=== PATIENT | male | born 1960 | race African-American/Black ===

== ENCOUNTER 2016-10-25 03:00 | Emergency (ER) | payer MEDICARE, MEDICAID ==
[~2016-10-25] VITALS: Ht 175.3 cm; Wt 86.4 kg
[~2016-10-25 03:00] MED LIST: ASPI81 PO; HYDR-2768 PO; HYDR10TA16 PO; PRIN20TA2 PO
[2016-10-25 03:02] VITALS: BP 140/75; PULSE 67; RESP 16; TEMP 98.1; O2SAT 97
[2016-10-25] MEDS ORDERED: SODIUM CHLORIDE 0.9% FLUSH 10 ML FLUSH IVF PRN (03:15)
[2016-10-25] MEDS ORDERED: ASPI81CH CHEW (03:21)
[2016-10-25] MEDS ORDERED: CLON0.2T PO (03:21)
[2016-10-25] MEDS ORDERED: HYDR-3516 PO (03:22)
[2016-10-25] MEDS ORDERED: LISI-515 PO (03:22)
[2016-10-25] MEDS ORDERED: STATIN (03:23)
--- NOTE | 2016-10-25 03:34 | RADRPT ---
EXAM DATE/TIME: 10/25/2016 03:27 [place] COMPARISON: No previous studies available for comparison. INDICATIONS : Seizure, altered mental status. RADIATION DOSE: 49.62 CTDIvol (mGy) MEDICAL HISTORY : Cardiovascular disease. Hypertension. SURGICAL HISTORY : None. ENCOUNTER: Initial ACUITY: 1 day PAIN SCALE: 0/10 LOCATION: cranial TECHNIQUE: Multiple contiguous axial images were obtained of the head. Using automated exposure control and adj ustment of the mA and/or kV according to patient size, radiation dose was kept as low as reasonably a chievable to obtain optimal diagnostic quality images. DICOM format image data is available electro nically for review and comparison. FINDINGS: CEREBRUM: The ventricles are normal for age. No evidence of midline shift, mass lesion, hemorrhage or acute in farction. No extra-axial fluid collections are seen. POSTERIOR FOSSA: The cerebellum and brainstem are intact. The 4th ventricle is midline. The cerebellopontine angle i s unremarkable. EXTRACRANIAL: The visualized portion of the orbits is intact. SKULL: The calvaria is intact. No evidence of skull fracture. CONCLUSION: Negative noncontrast head CT. Zach Vegas MD on October 25, 2016 at 3:33 Board Certified Radiologist. This report was verified electronically.
[2016-10-25 03:39] LABS: AUTOMATED NEUTROPHIL # 3.5 TH/MM3 (1.8-7.7); BASOPHIL % 0.2 % (0.0-2.0); EOSINOPHIL # 0.1 TH/MM3 (0-0.4); EOSINOPHIL % 1.7 % (0.0-4.0); HEMATOCRIT 39.7 % (39.0-51.0); HEMO FLAGS DIFF FINAL; MEAN CELL VOLUME 97.5 FL (80.0-100.0); MEAN CORPUSCULAR HEMOGLOBIN 33.2 PG (27.0-34.0); MONO % 8.3 % (0.0-8.0); NEUT % 41.8 % (16.0-70.0); PLATELET COUNT 317 TH/MM3 (150-450); RED BLOOD COUNT 4.07 MIL/MM3 (4.50-5.90); RED CELL DISTRIBUTION WIDTH 15.8 % (11.6-17.2); WHITE BLOOD COUNT 8.3 TH/MM3 (4.0-11.0)
[2016-10-25 03:53] LABS: ALT (GPT) 34 U/L (12-78); ANION GAP 16 MEQ/L (5-15); AST (GOT) 21 U/L (15-37); BICARBONATE 19.2 MEQ/L (21.0-32.0); BLOOD UREA NITROGEN 11 MG/DL (7-18); CHLORIDE 104 MEQ/L (98-107); GLOMERULAR FILTRATION RATE 71 ML/MIN (>89); POTASSIUM 3.9 MEQ/L (3.5-5.1); SODIUM (NA) 139 MEQ/L (136-145)
[2016-10-25 03:55] LABS: ALKALINE PHOSPHATASE 91 U/L (45-117); TOTAL BILIRUBIN ADULT 0.6 MG/DL (0.2-1.0)
--- NOTE | 2016-10-25 04:37 | PD ---
HPI Chief Complaint: Seizure Time Seen by Provider: 03:03 Travel History International Travel<30 days: No Contact w/Intl Traveler<30days: No Traveled to known affect area: No History of Present Illness HPI 55-year-old male came to the emergency room brought by EMS with history of new- onset seizure. His was sleeping with him noticed that he was shaking and when she woke up patient was having a generalized tonic-clonic seizure. She called 911. The seizure lasted for 2-3 minutes. Patient had tongue bite as well as urinary incontinence. Patient had fallen and hit his had one week ago. He did not seek any medical help at that time. Patient has history of coronary artery disease. He is a smoker but denies drinking alcohol or doing any drugs. Patient was awake but slightly confused during transportation. Vital signs were stable. [facility] Past Medical History Narrative Medical list of his past medical, surgical, social and family history is reviewed from the nursing note. Arthritis: Yes Cardiac Catheterization: Yes (IN 2008) Cardiovascular Problems: Yes High Cholesterol: Yes Chest Pain: Yes (prior to stent placement) Coronary Artery Disease: Yes Diminished Hearing: No Gastrointestinal Disorders: Yes (POLYPS) GERD: Yes Hypertension: Yes Musculoskeletal: Yes (Chronic neck ,LOWER BACK PAIN ) Immunizations Current: Yes Ulcer: Yes Past Surgical History Abdominal Surgery: Yes (testicle removal) Cardiac Surgery: Yes (stent placement 2008) Coronary Stent: Yes (RCA) Other Surgery: Yes Social History Alcohol Use: No Tobacco Use: Yes (1ppd) Substance Use: No Allergies-Medications (Allergen,Severity, Reaction): Coded Allergies: cefazolin (Unverified Allergy, Severe, "EYES SWELLED UP", 09/30/16) Comments list of his allergies reviewed from the nursing note. Reported Meds & Prescriptions Reported Meds & Active Scripts Active Reported [Statin] Lisinopril 20 Mg Tab 20 Mg PO DAILY Hydrocodone-Acetaminophen 5-325 mg Tab 1 Tab PO Q6H PRN Aspirin 81 Mg Chew 81 Mg CHEW ONCE Clonidine (Clonidine HCl) 0.2 Mg Tab 0.2 Mg PO BID Narrative Medication list of his home medications reviewed from the nursing note. Review of Systems Except as stated in HPI: all other systems reviewed are Neg Physical Exam Narrative GENERAL: Awake, alert, mild distress SKIN: Focused skin assessment warm/dry. Small ecchymosis on the left upper lid HEAD: Atraumatic. Normocephalic. EYES: Pupils equal and round. No scleral icterus. Left eye subconjunctival hemorrhage ENT: No nasal bleeding or discharge. Mucous membranes pink and moist. Tongue bite on the left anterior margin, bleeding controlled, some swelling NECK: Trachea midline. No JVD. CARDIOVASCULAR: Regular rate and rhythm. No murmur appreciated. RESPIRATORY: No accessory muscle use. Clear to auscultation. Breath sounds equal bilaterally. GASTROINTESTINAL: Abdomen soft, non-tender, nondistended. Hepatic and splenic margins not palpable. MUSCULOSKELETAL: No obvious deformities. No clubbing. No cyanosis. No edema. NEUROLOGICAL: Awake and alert. No obvious cranial nerve deficits. Motor grossly within normal limits. Normal speech. PSYCHIATRIC: Appropriate mood and affect; insight and judgment normal. Data Data Last Documented VS Orders Orders Complete Blood Count With Diff (10/25/16 03:04) Drug Screen, Random Urine (10/25/16 03:04) Electrocardiogram (10/25/16 ) Ct Brain W/O Iv Contrast(Rout) (10/25/16 ) Blood Glucose (10/25/16 03:04) Ecg Monitoring (10/25/16 03:04) Iv Access Insert/Monitor (10/25/16 03:04) Oximetry (10/25/16 03:04) Comprehensive Metabolic Panel (10/25/16 03:04) Sodium Chloride 0.9% Flush (Ns Flush) (10/25/16 03:15) Ua Includes Microscopic (10/25/16 03:04) Labs Laboratory Tests Test 10/25/16 03:15 10/25/16 05:15 White Blood Count 8.3 TH/MM3 Red Blood Count 4.07 MIL/MM3 Hemoglobin 13.5 GM/DL Hematocrit 39.7 % Mean Corpuscular Volume 97.5 FL Mean Corpuscular Hemoglobin 33.2 PG Mean Corpuscular Hemoglobin Concent 34.0 % Red Cell Distribution Width 15.8 % Platelet Count 317 TH/MM3 Mean Platelet Volume 6.9 FL Neutrophils (%) (Auto) 41.8 % Lymphocytes (%) (Auto) 48.0 % Monocytes (%) (Auto) 8.3 % Eosinophils (%) (Auto) 1.7 % Basophils (%) (Auto) 0.2 % Neutrophils # (Auto) 3.5 TH/MM3 Lymphocytes # (Auto) 4.0 TH/MM3 Monocytes # (Auto) 0.7 TH/MM3 Eosinophils # (Auto) 0.1 TH/MM3 Basophils # (Auto) 0.0 TH/MM3 CBC Comment DIFF FINAL Differential Comment Blood Urea Nitrogen 11 MG/DL Creatinine 1.29 MG/DL Random Glucose 112 MG/DL Total Protein 8.8 GM/DL Albumin 4.4 GM/DL Calcium Level 9.2 MG/DL Alkaline Phosphatase 91 U/L Aspartate Amino Transf (AST/SGOT) 21 U/L Alanine Aminotransferase (ALT/SGPT) 34 U/L Total Bilirubin 0.6 MG/DL Sodium Level 139 MEQ/L Potassium Level 3.9 MEQ/L Chloride Level 104 MEQ/L Carbon Dioxide Level 19.2 MEQ/L Anion Gap 16 MEQ/L Estimat Glomerular Filtration Rate 71 ML/MIN Urine Color YELLOW Urine Turbidity CLEAR Urine pH 5.0 Urine Specific [place] 1.019 Urine Protein 30 mg/dL Urine Glucose (UA) NEG mg/dL Urine Ketones 10 mg/dL Urine Occult Blood MOD Urine Nitrite NEG Urine Bilirubin NEG Urine Urobilinogen LESS THAN 2.0 MG/DL Urine Leukocyte Esterase NEG Urine RBC 47 /hpf Urine WBC 3 /hpf Urine Hyaline Casts 6 /lpf Urine Mucus FEW /lpf Urine Sperm OCC Urine Opiates Screen POS Urine Barbiturates Screen NEG Urine Amphetamines Screen NEG Urine Benzodiazepines Screen POS Urine Cocaine Screen NEG Urine Cannabinoids Screen NEG MDM Medical Decision Making Medical Screen Exam Complete: Yes Emergency Medical Condition: Yes Medical Record Reviewed: Yes Interpretation(s) 12-lead EKG is reviewed by me. Normal sinus rhythm, normal axis, nonspecific ST -T wave changes. Heart rate of 63 bpm. Differential Diagnosis new onset seizure, electrolyte abnormality, intracranial bleed Narrative Course 4:34 AM blood test results are back. There is mild acidosis which could be secondary to the seizure. Rest of his test results are within acceptable limits. CT scan of the head is negative. Patient has not had any other seizure while in the waiting room. I had ordered a urine drug screen but patient has not given a urine sample yet. However I'm comfortable discharging him home. Procedures EKG Prior to Arrival: No Diagnosis Primary Impression: New onset seizure Referrals: Primary Care Physician Additional Instructions: You should not be driving or swimming until you have been seen by a neurologist. Follow-up with your primary care and get a referral to a neurologist within the next week. Return to the ER if the condition worsens or any other new concerns. Med/Other Pt SpecificInfo: No Change to Meds Disposition: 01 DISCHARGE HOME Condition: Stable Anne Engel MD Oct 25, 2016 04:37
[2016-10-25 05:53] LABS: BLOOD, URINE MOD (NEG); GLUCOSE,URINE NEG (NEG); HYALINE CAST, URINE 6 /lpf (RARE); KETONE, URINE 10 mg/dL (NEG); MUCUS URINE FEW /lpf (OCC); NITRITE,URINE NEG (NEG); URINE COLOR YELLOW (YELLW/STRAW)
--- NOTE | 2016-10-25 13:41 | EKG ---
Date Performed: 10/25/2016 Time Performed: 03:12:22 PTAGE: 55 years EKG: Sinus rhythm NONSPECIFIC T-WAVE ABNORMALITY Compared to prior tracing no significant change BORDERLINE ECG PREVIOUS TRACING : 07/10/2009 09.38 DOCTOR: Luis Manuel Greene Interpretating Date/Time 10/25/2016 13:40:19
== END 2016-10-25 05:41 | disposition home or self-care (01) ==
LOC: NEPC 03:00
DX: R56.9 Unspecified convulsions (principal); I25.10 Atherosclerotic heart disease of native coronary artery without angina pectoris; F17.200 Nicotine dependence, unspecified, uncomplicated; M19.90 Unspecified osteoarthritis, unspecified site; E78.00 Pure hypercholesterolemia, unspecified; K21.9 Gastro-esophageal reflux disease without esophagitis; I10 Essential (primary) hypertension; Z79.82 Long term (current) use of aspirin; Z79.899 Other long term (current) drug therapy
CPT/HCPCS: 70450; 80053; 80307; 81001; 85025; 93005